=== PATIENT | female | born 1960 | race Caucasian/White ===

== ENCOUNTER → 2017-04-23 | Outpatient (CLI) | payer BC ==
--- NOTE | 2017-04-23 09:44 | MM ---
Reason for exam: additional evaluation requested from prior study. Last mammogram was performed 1 year ago. History: Patient is postmenopausal and has history of breast cancer at age 47. Family history of premenopausal breast cancer in maternal cousin at age 39 and breast cancer in maternal aunt. Excisional biopsy of the left breast, September 14, 2007. Malignant ultrasound-guided FNA biopsy of the left breast, August 29, 2007. Malignant US left CoreBiopsy of both breasts, August 29, 2007. Chemotherapy, 2007. Radiation therapy of the left breast, 2007. Took hormonal contraceptives for 3 years beginning at age 22. Physical Findings: Nurse did not find any significant physical abnormalities on exam. MG Diagnostic Mammo w CAD [facility] Bilateral CC and MLO view(s) were taken. Prior study comparison: April 21, 2016, bilateral MG diagnostic mammo w CAD [facility]. April 17, 2015, bilateral MG diagnostic mammo w CAD [facility]. There are scattered fibroglandular densities. Post lumpectomy changes in the left breast. No significant new findings when compared with previous films. These results were verbally communicated with the patient and result sheet given to the patient on 04/23/17. ASSESSMENT: Benign, BI-RAD 2 RECOMMENDATION: Follow-up diagnostic mammogram of both breasts in 1 year.
== END | disposition home or self-care (01) ==
LOC: RADMAMWWP 08:45
PROVIDERS: ATTEND Internal Medicine Hematology & Oncology
DX: Z08 Encounter for follow-up examination after completed treatment for malignant neoplasm (principal); Z85.3 Personal history of malignant neoplasm of breast

== ENCOUNTER → 2018-04-26 | Outpatient (CLI) | payer BC ==
--- NOTE | 2018-04-26 09:32 | MM ---
Reason for exam: additional evaluation requested from prior study. Last mammogram was performed 1 year ago. History: Patient is postmenopausal and has history of breast cancer at age 47. Family history of premenopausal breast cancer in maternal cousin at age 39 and breast cancer in maternal aunt. Excisional biopsy of the left breast, September 14, 2007. Malignant ultrasound-guided FNA biopsy of the left breast, August 29, 2007. Malignant US left CoreBiopsy of both breasts, August 29, 2007. Chemotherapy, 2007. Radiation therapy of the left breast, 2007. Took hormonal contraceptives for 3 years beginning at age 22. Physical Findings: Nurse did not find any significant physical abnormalities on exam. MG Diagnostic Mammo w CAD [facility] Bilateral CC and MLO view(s) were taken. XCCL view(s) were taken of the left breast. Prior study comparison: April 23, 2017, bilateral MG diagnostic mammo w CAD [facility]. April 21, 2016, bilateral MG diagnostic mammo w CAD [facility]. There are scattered fibroglandular densities. Asymmetric breast tissue greater in the right breast. Post surgical changes in the left breast. No significant new findings when compared with previous films. These results were verbally communicated with the patient and result sheet given to the patient on 04/26/18. ASSESSMENT: Benign, BI-RAD 2 RECOMMENDATION: Routine screening mammogram of both breasts in 1 year.
== END | disposition home or self-care (01) ==
LOC: RADMAMWWP 08:47
PROVIDERS: ATTEND Internal Medicine Hematology & Oncology
DX: Z08 Encounter for follow-up examination after completed treatment for malignant neoplasm (principal); Z85.3 Personal history of malignant neoplasm of breast
CPT/HCPCS: 77066

== ENCOUNTER → 2019-04-27 | Outpatient (CLI) | payer BC ==
--- NOTE | 2019-05-01 08:00 | MM ---
Reason for exam: screening (asymptomatic). Last mammogram was performed 1 year ago. History: Patient is postmenopausal and has history of breast cancer at age 47. Family history of premenopausal breast cancer in maternal cousin at age 39 and breast cancer in maternal aunt. Excisional biopsy of the left breast, September 14, 2007. Malignant ultrasound-guided FNA biopsy of the left breast, August 29, 2007. Malignant US left CoreBiopsy of both breasts, August 29, 2007. Chemotherapy, 2007. Radiation therapy of the left breast, 2007. Took hormonal contraceptives for 3 years beginning at age 22. Physical Findings: A clinical breast exam by your physician is recommended on an annual basis and results should be correlated with mammographic findings. MG Screening Mammo w CAD Bilateral CC and MLO view(s) were taken. Prior study comparison: April 26, 2018, bilateral MG diagnostic mammo w CAD [facility]. April 23, 2017, bilateral MG diagnostic mammo w CAD [facility]. The breast tissue is heterogeneously dense. This may lower the sensitivity of mammography. No suspicious abnormality. Post therapy change on the left. No significant changes when compared with prior studies. ASSESSMENT: Benign, BI-RAD 2 RECOMMENDATION: Routine screening mammogram of both breasts in 1 year.
== END | disposition home or self-care (01) ==
LOC: RADMAMWWP 08:46
PROVIDERS: ATTEND Internal Medicine Hematology & Oncology
DX: Z12.31 Encounter for screening mammogram for malignant neoplasm of breast (principal)
CPT/HCPCS: 77067

== ENCOUNTER → 2020-04-30 | Outpatient (CLI) | payer BC ==
--- NOTE | 2020-04-30 13:14 | BD ---
EXAMINATION TYPE: Axial Bone Density DATE OF EXAM: 04/30/2020 COMPARISON: DEXA April 17, 2015 CLINICAL HISTORY: Postmenopausal female Height: 66 Weight: 168.1 FRAX RISK QUESTIONS: Alcohol (3 or more units per day): no Family History (Parent hip fracture): no Glucocorticoids (More than 3mos): no (Ex: prednisone, prednisolone, methylprednisolone, dexamethasone, and hydrocortisone). History of Fracture in Adulthood: no Secondary Osteoporosis: 1. Type 1 Diabetes: no 2. Hyperthyroidism: no 3. Menopause before 45: no 4. Malnutrition: no 5. Chronic liver disease: no Rheumatoid Arthritis: no Current Tobacco Use: yes RISK FACTORS HISTORY OF: Family History of Osteoporosis: no Active: yes Diet low in dairy products/other sources of calcium: yes Postmenopausal woman: age 51 Lost more than 2 inches in height since high school: no MEDICATIONS: none Additional History: EXAM MEASUREMENTS: Bone mineral densitometry was performed using the [employer] System. Bone mineral density as measured about the Lumbar spine is: ----- L1-L4(G/cm2): 0.927 T Score Values are as follows: ----- L2: -1.9 ----- L3: -2.0 ----- L4: -2.8 ----- L1-L4: -2.1 Bone mineral density has: decreased -4.6 % since study of: 04.17.2015 Bone mineral density about the R hip (g/cm2): 0.853 Bone mineral density about the L hip (g/cm2): 0.838 T Score values are as follows: -----R Neck: -1.3 -----L Neck: -1.4 -----R Total: -1.4 -----L Total: -1.5 Bone mineral density has: decreased -2.5 % since study of: 04.17.2015 IMPRESSION: Osteopenia (T Score between -2.5 and -1) remains present. Bone density slightly decreased or diminish ed from prior. There remains slightly increased risk of fracture and the patient may be considered for treatment. Re-Screen 2-5 years. NOTE: T-SCORE=SD OF THE YOUNG ADULT MEAN.
--- NOTE | 2020-05-01 13:11 | MM ---
Reason for exam: screening (asymptomatic). Last mammogram was performed 1 year ago. History: Patient is postmenopausal and has history of breast cancer at age 47. Family history of premenopausal breast cancer in maternal cousin at age 39 and breast cancer in maternal aunt. Excisional biopsy of the left breast, September 14, 2007. Malignant ultrasound-guided FNA biopsy of the left breast, August 29, 2007. Malignant US left CoreBiopsy of both breasts, August 29, 2007. Chemotherapy, 2007. Radiation therapy of the left breast, 2007. Took hormonal contraceptives for 3 years beginning at age 22. Physical Findings: A clinical breast exam by your physician is recommended on an annual basis and results should be correlated with mammographic findings. MG Screening Mammo w CAD Bilateral CC and MLO view(s) were taken. Prior study comparison: April 27, 2019, bilateral MG screening mammo w CAD. April 26, 2018, bilateral MG diagnostic mammo w CAD [facility]. The breast tissue is heterogeneously dense. This may lower the sensitivity of mammography. Benign appearing bilateral calcifications. Post surgical changes left breast. ASSESSMENT: Benign, BI-RAD 2 RECOMMENDATION: Routine screening mammogram of both breasts in 1 year.
== END | disposition home or self-care (01) ==
LOC: RADMAMWWP 08:48
PROVIDERS: ATTEND Internal Medicine Hematology & Oncology
DX: Z12.31 Encounter for screening mammogram for malignant neoplasm of breast (principal); M85.80 Other specified disorders of bone density and structure, unspecified site; Z78.0 Asymptomatic menopausal state
CPT/HCPCS: 77067; 77080

== ENCOUNTER → 2021-05-29 | Outpatient (CLI) | payer BC ==
--- NOTE | 2021-05-30 10:57 | MM ---
Reason for exam: screening (asymptomatic). Last mammogram was performed 1 year and 1 month ago. History: Patient is postmenopausal and has history of breast cancer at age 47. Family history of premenopausal breast cancer in maternal cousin at age 39 and breast cancer in maternal aunt. Excisional biopsy of the left breast, September 14, 2007. Malignant ultrasound-guided FNA biopsy of the left breast, August 29, 2007. Malignant US left CoreBiopsy of both breasts, August 29, 2007. Chemotherapy, 2007. Radiation therapy of the left breast, 2007. Took hormonal contraceptives for 3 years beginning at age 22. Physical Findings: A clinical breast exam by your physician is recommended on an annual basis and results should be correlated with mammographic findings. MG Screening Mammo w CAD Bilateral CC and MLO view(s) were taken. Prior study comparison: April 30, 2020, bilateral MG screening mammo w CAD. April 27, 2019, bilateral MG screening mammo w CAD. There are scattered fibroglandular densities. Benign appearing calcifications in the left breast. Post biopsy changes on the left. ASSESSMENT: Benign, BI-RAD 2 RECOMMENDATION: Routine screening mammogram of both breasts in 1 year.
== END | disposition home or self-care (01) ==
LOC: RADMAMWWP 08:29
PROVIDERS: ATTEND Internal Medicine Hematology & Oncology
DX: Z12.31 Encounter for screening mammogram for malignant neoplasm of breast (principal); Z80.3 Family history of malignant neoplasm of breast; Z78.0 Asymptomatic menopausal state
CPT/HCPCS: 77067

== ENCOUNTER → 2023-06-02 | Outpatient (CLI) | payer BC ==
--- NOTE | 2023-06-02 10:21 | US ---
EXAMINATION TYPE: US abdomen complete DATE OF EXAM: 06/02/2023 COMPARISON: NONE CLINICAL INDICATION: Female, 62 years old with history of E83.119 HEMOCHROMATOSIS, UNSPECIFIED; TECHNIQUE: Multiple sonographic images of the abdomen are obtained. FINDINGS: EXAM MEASUREMENTS: Liver Length: 14.8 cm Gallbladder Wall: 0.2 cm CBD: 0.4 cm Spleen: 10.7 cm Right Kidney: 9.7 x 4.1 x 4.0 cm Left Kidney: 10.7 x 4.6 x 4.3 cm Pancreas: visualized portions wnl, limited by overlying midline bowel gas Liver: scanned intercostally, appears wnl Gallbladder: wnl Evidence for sonographic Blue's sign: no CBD: wnl Spleen: multiple echogenic foci with largest measuring 0.4cm Right Kidney: wnl Left Kidney: wnl Upper IVC: wnl Abd Aorta: wnl The liver is homogenous. The intrahepatic portion of the IVC and proximal abdominal aorta are within normal limits. There is no evidence of cholelithiasis. Common bile duct is unremarkable. The visu alized portions of the pancreas are homogenous. The spleen is unremarkable. Kidneys are symmetric a nd free of hydronephrosis. No renal lesions are seen. IMPRESSION: No significant abnormality seen.
--- NOTE | 2023-06-02 15:48 | BD ---
EXAMINATION TYPE: Axial Bone Density DATE OF EXAM: 06/02/2023 CLINICAL HISTORY: 62 years old Female. ICD-10 CODE: M85.88 DISORDER OF BONE Height: 65 in Weight: 192 lbs RISK FACTORS HISTORY OF: Active: yes Diet low in dairy products/other sources of calcium: yes Postmenopausal woman: approximately age 47 MEDICATIONS: Additional Medications: calcium, vit d, Additional History: breast cancer with chemo and radiation EXAM MEASUREMENTS: Bone mineral densitometry was performed using the [employer] System. Bone mineral density as measured about the Lumbar spine is: ----- L1-L4(G/cm2): 0.950 T Score Values are as follows: ----- L1: -1.8 ----- L2: -1.6 ----- L3: -1.8 ----- L4: -2.5 ----- L1-L4: -1.9 Z Score Values are as follows: ----- L1: -1.3 ----- L2: -1.1 ----- L3: -1.3 ----- L4: -2.0 ----- L1-L4: -1.4 Bone mineral density has: Increased 2.5% since study of: 04/30/2020 Bone mineral density about the R hip (g/cm2): 0.811 Bone mineral density about the L hip (g/cm2): 0.804 T Score values are as follows: -----R Neck: -1.3 -----L Neck: -1.5 -----R Total: -1.6 -----L Total: -1.6 Z Score values are as follows: -----R Neck: -0.5 -----L Neck: -0.7 -----R Total: -1.1 -----L Total: -1.2 Bone mineral density has: Decreased -2.1% since study of: 04/30/2020 FRAX%s: The graph provided illustrates a 8.0% chance for a major osteoporotic fx and a 0.7% chance fo r the hips probability for fx in 10 years time. IMPRESSION: Osteopenia (T Score between -2.5 and -1). There is slightly increased risk of fracture and the patient may be considered for treatment. Re-Screen 2-5 years. NOTE: T-SCORE=SD OF THE YOUNG ADULT MEAN.
--- NOTE | 2023-06-03 11:02 | MM ---
Reason for Exam: Screening (asymptomatic). Last screening mammogram was performed 12 month(s) ago. Patient History: Menarche at age 15. First Full-Term at age 26. Postmenopausal. Breast cancer, left, age 47. Hormonal Contraceptives for 3 years from age 22 until age 25. 09/14/2007, Excisional Biopsy on the Left side. 08/29/2007, Malignant Ultrasound-Guided FNA Biopsy on the left side. 08/29/2007, Bilateral Malignant Core Biopsy. 2007, Chemotherapy. 2007, Radiation Therapy on the left side. Maternal cousin had breast cancer, age 39. Maternal aunt had breast cancer. Prior Study Comparison: 04/30/2020 Bilateral Screening Mammogram, [facility]. 05/29/2021 Bilateral Screening Mammogram, [facility]. 06/01/2022 Bilateral MG 3D screening mammo w/cad, [facility]. Tissue Density: The breast tissue is heterogeneously dense. This may lower the sensitivity of mammography. Findings: Analyzed By CAD. There is no suspicious group of microcalcifications or new suspicious mass in either breast. Stable postoperative distortion left breast. Overall Assessment: Benign, BI-RAD 2 Management: Screening Mammogram of both breasts in 1 year. . Patient should continue monthly self-breast exams. A clinical breast exam by your physician is recommended on an annual basis. This exam should not preclude additional follow-up of suspicious palpable abnormalities. Note on Bhavana scores and lifetime risk: 1. A Bhavana score greater than 3% is considered moderate risk. If this is the case, consider specialist referral to assess eligibility for a risk reducing agent. 2. If overall lifetime risk for the development of breast cancer is 20% or higher, the patient may qualify for future screening with alternating mammogram and breast MRI. Electronically signed and approved by: Yossi Gallegos M.D. Radiologis
== END | disposition home or self-care (01) ==
LOC: RADUSWWP 09:31
PROVIDERS: ATTEND Internal Medicine Hematology & Oncology
DX: Z12.31 Encounter for screening mammogram for malignant neoplasm of breast (principal); M85.89 Other specified disorders of bone density and structure, multiple sites; E83.119 Hemochromatosis, unspecified
CPT/HCPCS: 76700; 77063; 77067; 77080

== ENCOUNTER → 2024-06-05 | Outpatient (CLI) | payer BC ==
--- NOTE | 2024-06-06 09:04 | MM ---
Reason for Exam: Screening (asymptomatic). Last screening mammogram was performed 12 month(s) ago. Patient History: Menarche at age 15. First Full-Term at age 26. Postmenopausal. Patient has history of breast feeding. Breast cancer, left, age 47. Hormonal Contraceptives for 3 years from age 22 until age 25. 09/14/2007, Excisional Biopsy on the Left side. 08/29/2007, Malignant Ultrasound-Guided FNA Biopsy on the left side. 08/29/2007, Bilateral Malignant Core Biopsy. 2007, Chemotherapy. 2007, Radiation Therapy on the left side. Maternal cousin had breast cancer, age 39. Maternal aunt had breast cancer. Prior Study Comparison: 05/29/2021 Bilateral Screening Mammogram, [facility]. 06/01/2022 Bilateral MG 3D screening mammo w/cad, [facility]. 06/02/2023 Bilateral MG 3D screening mammo w/cad, [facility]. Tissue Density: There are scattered areas of fibroglandular density. Findings: Analyzed By CAD. Left breast surgical clips. Right breast: There is no suspicious group of microcalcifications or new suspicious mass. Left breast: There is no suspicious group of microcalcifications or new suspicious mass. Benign-appearing calcifications left breast. Overall Assessment: Benign, BI-RAD 2 Management: Screening Mammogram of both breasts in [address] [facility] will attempt to contact patient to return for supplemental views and ultrasound if indicated. Patient should continue monthly self-breast exams. A clinical breast exam by your physician is recommended on an annual basis. This exam should not preclude additional follow-up of suspicious palpable abnormalities. Note on Bhavana scores and lifetime risk: 1. A Bhavana score greater than 3% is considered moderate risk. If this is the case, consider specialist referral to assess eligibility for a risk reducing agent. 2. If overall lifetime risk for the development of breast cancer is 20% or higher, the patient may qualify for future screening with alternating mammogram and breast MRI. [facility], , 06/06/2024 9:01 AM. Electronically signed and approved by: He Powell DO
== END ==
LOC: RADMAMWWP 13:15
PROVIDERS: ATTEND Internal Medicine Hematology & Oncology
CPT/HCPCS: 77063; 77067